=== PATIENT | female | born 1965 | race Caucasian/White ===

== ENCOUNTER 2017-02-26 13:41 | Emergency (ER) | payer SELFPAY ==
[~2017-02-26] VITALS: Ht 152.4 cm; Wt 65.0 kg
[~2017-02-26 13:41] MED LIST: CHLO.12%30 SWISH-SPIT; CLIN150 PO; CYCL-36 PO; ESCI10TA PO; IBUP800T23 PO; MMW SWISH-SPIT
[2017-02-26 13:44] VITALS: BP 133/77; PULSE 80; RESP 20; TEMP 98; O2SAT 100
--- NOTE | 2017-02-26 13:45 | PD ---
Physical Exam Time Seen by Provider: 13:44 Narrative 51 year old female presents with neck pain tomorrow, started yesterday AM, worse with movement, no known injury. associated dizziness/nausea with quick head movement. Seen at triage desk. Awaiting bed placement. Data Data Last Documented VS Vital Signs Date Time Temp Pulse Resp B/P Pulse Ox O2 Delivery O2 Flow Rate FiO2 02/26/17 13:44 98.0 80 20 133/77 100 Room Air [facility] Medical Record Reviewed: Yes Supervised Visit with KATHY: Yes Jw Deras Feb 26, 2017 13:45
[2017-02-26] MEDS ORDERED: ORPHENADRINE INJ 60 MG/2 ML AMP IM ONE (14:30)
[2017-02-26] MEDS ORDERED: KETOROLAC TROMETHAMINE 60 MG/2 ML (IM) VIAL IM ONE (14:30)
--- NOTE | 2017-02-26 14:49 | PD ---
HPI Chief Complaint: Back/ Neck Pain or Injury Time Seen by Provider: 14:24 Travel History International Travel<30 days: No Contact w/Intl Traveler<30days: No Traveled to known affect area: No History of Present Illness HPI 51-year-old female complains of pain and swelling of the neck. Patient states that the symptoms started yesterday. Patient states the pain is sharp and cramping pain from the base of the head to the base of the neck. Patient denies any recent injury. Patient states the pain is worse with movement of the neck. Patient states that she has nausea and dizziness with movement of the neck. Patient denies any usual change. Patient denies any fever chills. Patient denies any coughing congestion. Patient denies any focal weakness or numbness of extremity. PFSH Past Medical History Hx Anticoagulant Therapy: No Cardiovascular Problems: No Chemotherapy: No Cerebrovascular Accident: No Diabetes: No Respiratory: No : 3 Para: 3 Past Surgical History Section: Yes (X1) Hysterectomy: No Social History Alcohol Use: Yes (SOCIAL) Tobacco Use: Yes (1PPD) Substance Use: No Allergies-Medications (Allergen,Severity, Reaction): Coded Allergies: No Known Allergies (Verified , 02/26/17) Reported Meds & Prescriptions Reported Meds & Active Scripts Active Magic Mouthwash-Diphenhy Formula (Lidocaine/Diphenhydr/Alum/Mg/Simeth) Ml 5 Ml SWISH-SPIT Q3H PRN MAGIC MOUTHWASH=MIX 1/3 VISCOUS LIDOCAINE(80 ML), 1/3 MAALOX(80 ML),AND 1/3 BENADRYL(80 ML) TO EQUAL 240 ML TOTAL VOLUME. Peridex Oral Rinse (Chlorhexidine Gluconate) 0.12 % Rosario 15 Ml SWISH-SPIT BID 10 Days Ibuprofen 800 Mg Tab 800 Mg PO Q6H PRN Cleocin (Clindamycin HCl) 150 Mg Cap 450 Mg PO QID 10 Days Reported Escitalopram Oxalate 10 Mg Tab 10 Mg PO DAILY Flexeril (Cyclobenzaprine HCl) 10 Mg Tab 10 Mg PO HS Review of Systems General / Constitutional: No: Fever Eyes: No: Visual changes HENT: Positive: Neck Pain, No: Headaches Cardiovascular: No: Chest Pain or Discomfort Respiratory: No: Shortness of Breath Gastrointestinal: Positive: Nausea, No: Abdominal Pain Genitourinary: No: Dysuria Musculoskeletal: No: Pain Skin: No Rash Neurologic: No: Weakness Psychiatric: No: Depression Endocrine: No: Polydipsia Hematologic/Lymphatic: No: Easy Bruising Physical Exam Narrative GENERAL: Well-nourished, well-developed patient. SKIN: Focused skin assessment warm/dry. HEAD: Normocephalic. EYES: No scleral icterus. No injection or drainage. NECK: Supple, trachea midline. No JVD or lymphadenopathy. Patient has moderate tenderness on palpation paraspinal areas cervical spine. No midline tenderness. No meningismus. CARDIOVASCULAR: Regular rate and rhythm without murmurs, gallops, or rubs. RESPIRATORY: Breath sounds equal bilaterally. No accessory muscle use. GASTROINTESTINAL: Abdomen soft, non-tender, nondistended. MUSCULOSKELETAL: No cyanosis, or edema. BACK: Nontender without obvious deformity. No CVA tenderness. Neurologic exam normal. Data Data Last Documented VS Vital Signs Date Time Temp Pulse Resp B/P Pulse Ox O2 Delivery O2 Flow Rate FiO2 02/26/17 15:10 16 02/26/17 13:44 98.0 80 133/[address] Cerv Spine W/O Contrast (02/26/17 14:29) Ketorolac Inj (Toradol Inj) (02/26/17 14:30) Orphenadrine Inj (Norflex Inj) (02/26/17 14:30) MDM Medical Decision Making Medical Screen Exam Complete: Yes Emergency Medical Condition: Yes Interpretation(s) Last Impressions Cervical Spine CT 02/26/17 1429 Signed Impressions: Service Date/Time: Sunday, February 26, 2017 14:48 - CONCLUSION: No acute cervical spine abnormality is identified. There is anterolisthesis of C3 on C4 likely related to facet arthrosis. There is degenerative disc disease at C5-C6 and C6-C7. Please see above for detailed description of each level. Frank Phipps MD Differential Diagnosis Differential diagnosis: Muscle spasm, fracture, subluxation, encephalitis. Narrative Course 51-year-old female complains of neck pain. Diagnosis Primary Impression: Neck pain, musculoskeletal Patient Instructions: General Instructions Additional Instructions: Take medications as needed for pain. Follow-up with personal physician. Return immediately if increasing neck pain, neck stiffness, fever, worsening of condition. Med/Other Pt SpecificInfo: Prescription(s) given Scripts Tramadol (Ultram)50 Mg Tab50 Mg PO Q6H PRN (PAIN) #20 TAB Prov:Andrea Purcell MD 02/26/17 Methocarbamol (Robaxin)750 Mg [id number] Mg PO QID #40 TAB Prov:Andrea Purcell MD 02/26/17 Meloxicam (Mobic)15 Mg Tab15 Mg PO DAILY #20 TAB Prov:Andrea Purcell MD 02/26/17 Disposition: 01 DISCHARGE HOME Condition: Stable Andrea Purcell MD Feb 26, 2017 14:49
--- NOTE | 2017-02-26 15:25 | RADRPT ---
EXAM DATE/TIME: 02/26/2017 14:48 [facility] COMPARISON: No previous studies available for comparison. INDICATIONS : Neck pain starting yesterday, pain started on the right side and moving to left. RADIATION DOSE: 31.68 CTDIvol (mGy) MEDICAL HISTORY : None SURGICAL HISTORY : None. ENCOUNTER: Initial ACUITY: 2 days PAIN SCALE: 9/10 LOCATION: neck TECHNIQUE: Volumetric scanning of the cervical spine was performed. Multiplanar reconstructions in the sagittal, coronal and oblique axial planes were performed. Using automated exposure control and adjustment o f the mA and/or kV according to patient size, radiation dose was kept as low as reasonably achievable to obtain optimal diagnostic quality images. FINDINGS: VERTEBRAE: Normal vertebral body height. No fracture is identified. ALIGNMENT: There is 2 mm of anterolisthesis of C3 on C4. The craniocervical junction and C1-C2 level demonstrate no acute finding. There are degenerative mendoza ges at the atlantodental interval. C2-C3: There is mild left facet arthrosis with a small left uncovertebral osteophyte. There is mild narrowin g of the left neural foramen. There is no canal stenosis or right neural foraminal narrowing. C3-C4: There is moderate right facet arthrosis. No disc herniation, canal stenosis, or neural foraminal narr owing is identified. C4-C5: There is a small left uncovertebral osteophyte. No spinal canal stenosis or neural foraminal narrowin g is present. C5-C6: There is decreased disc height with endplate osteophytes anteriorly and moderate size posterior disc osteophyte complex diffusely. The canal is not well visualized but no definite canal stenosis is seen . There is mild right neural foraminal narrowing. C6-C7: There is decreased disc height with small endplate osteophytes anteriorly and small diffuse posterior disc osteophyte complex. No canal stenosis or neural foraminal narrowing is appreciated. C7-T1: There is facet arthrosis bilaterally, left greater than right. No canal stenosis or neural foraminal narrowing is visualized. CONCLUSION: No acute cervical spine abnormality is identified. There is anterolisthesis of C3 on C4 likely relate d to facet arthrosis. There is degenerative disc disease at C5-C6 and C6-C7. Please see above for det jemal description of each level. Frank Phipps MD on February 26, 2017 at 15:18 Board Certified Radiologist. This report was verified electronically.
[2017-02-26] MEDS ORDERED: ULTR50TA5 PO (15:39)
[2017-02-26] MEDS ORDERED: MOBI15TA PO (15:39)
[2017-02-26] MEDS ORDERED: ROBA750T PO (15:39)
== END 2017-02-26 16:15 | disposition home or self-care (01) ==
LOC: NEPD 13:41
DX: M54.2 Cervicalgia (principal); R22.1 Localized swelling, mass and lump, neck; R11.0 Nausea; R42 Dizziness and giddiness; F17.200 Nicotine dependence, unspecified, uncomplicated
CPT/HCPCS: 72125; 96372; 99283; J1885; J2360

== ENCOUNTER 2017-08-16 01:43 | Emergency (ER) | payer OTHER ==
[~2017-08-16] VITALS: Ht 157.5 cm; Wt 53.2 kg
[~2017-08-16 01:43] MED LIST changes: +MOBI15TA PO; +ROBA750T PO; +ULTR50TA5 PO
[2017-08-16 01:48] VITALS: BP 158/63; PULSE 91; RESP 22; TEMP 98.2; O2SAT 100
[2017-08-16] MEDS ORDERED: SODIUM CHLOR 0.9% 1000 ML INJ 1,000 ML IV SCH (01:52)
[2017-08-16 01:54] VITALS: BP 129/73; PULSE 73
[2017-08-16] MEDS ORDERED: ONDANSETRON HCL 4 MG/2 ML VIAL IV PUSH ONE (02:00)
[2017-08-16] MEDS ORDERED: ceFAZolin 2 GM PREMIX 50 ML IV ONE (02:00)
[2017-08-16] MEDS ORDERED: DIPHTH/TETANUS/ACEL PERTUSSIS (BOOSTER) 0.5 ML VIAL/PFS IM ONE (02:00)
[2017-08-16] MEDS ORDERED: MORPHINE SULFATE 4 MG/ML INJ IV PUSH ONE (02:00)
[2017-08-16] MEDS ORDERED: SODIUM CHLORIDE 0.9% FLUSH 10 ML FLUSH IVF PRN (02:00)
[2017-08-16 02:03] VITALS: BP 120/71; PULSE 81; O2SAT 96
[2017-08-16 02:07] LABS: I-STAT POTASSIUM 5.4 MMOL/L (3.5-4.9)
[2017-08-16 02:08] VITALS: BP 113/58; PULSE 88; O2SAT 97
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
[2017-08-16] MEDS ORDERED: IOHEXOL 350 MG/ML 10 ML VIAL (for RAD DIAG) IVCONTRAST ONE (02:15)
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
[2017-08-16 03:07] LABS: BLOOD, URINE SMALL (NEG); COMMENT (UR) CULT NOT INDICATED; CULTURE IF INDICATED CULT NOT INDICATED; GLUCOSE,URINE NEG (NEG); KETONE, URINE NEG (NEG); NITRITE,URINE NEG (NEG); PH, URINE 6.5 (5.0-8.5); URINE COLOR COLORLESS (YELLW/STRAW)
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
[2017-08-16] MEDS ORDERED: ZOFR4TAB3 SL (05:17)
[2017-08-16] MEDS ORDERED: HYDR-3533 PO (05:17)
== END 2017-08-16 05:30 | disposition home or self-care (01) ==
LOC: NEPC 01:43
DX: S06.0X0A Concussion without loss of consciousness, initial encounter (principal); F10.129 Alcohol abuse with intoxication, unspecified; S00.03XA Contusion of scalp, initial encounter; S00.01XA Abrasion of scalp, initial encounter; M48.07 Spinal stenosis, lumbosacral region; F17.200 Nicotine dependence, unspecified, uncomplicated; V27.4XXA Motorcycle driver injured in collision with fixed or stationary object in traffic accident, initial encounter; Z23 Encounter for immunization; Z79.899 Other long term (current) drug therapy
CPT/HCPCS: 70450; 71260; 72125; 72128; 72131; 74177; 80307; 81001; 82435; 82565; 82947; 84132; 84295; 84520; 86850; 86900; 86901; 90471; 90715; 96361; 96365; 96374; 96375; 99285; J0690; J2270; J2405; J7030; Q9967